=== PATIENT | male | born 2005 | race Hispanic/Latino ===

== ENCOUNTER 2025-07-02 14:49 | Emergency (ER) | payer SELFPAY ==
[2025-07-02] MEDS ORDERED: Lidocaine 1% w/Epinephrine 1:100K 20 ML VIAL ONE (14:55)
[2025-07-02] MEDS ORDERED: Boostrix 0.5 ML (Tdap) VIAL (>/=7 yrs of age) ONE (15:42)
[2025-07-02] MEDS ORDERED: Bacitracin 1 PK ONE (15:42)
== END 2025-07-02 17:04 | disposition home or self-care (01) ==
LOC: MADERS 14:49
DX: S51.812A Laceration without foreign body of left forearm, initial encounter (principal); Z23 Encounter for immunization; Y04.2XXA Assault by strike against or bumped into by another person, initial encounter
CPT/HCPCS: 12002; 90471; 90715